=== PATIENT | female | born 1995 | race Caucasian/White ===

== ENCOUNTER 2020-06-30 20:55 | Emergency (ER) | payer OTHER ==
[~2020-06-30] VITALS: Ht 157.5 cm; Wt 68.0 kg
[2020-06-30] MEDS ORDERED: BIRTH CONTROL PATCH (21:18)
[2020-06-30 21:55] LABS: URINE BILIRUBIN NEGATIVE (Negative); URINE BLOOD TRACE (Negative); URINE CLARITY CLEAR; URINE COLOR YELLOW; URINE GLUCOSE-RANDOM 1+ (Negative); URINE KETONES NEGATIVE (Negative); URINE LEUKOCYTES-REFLEX NEGATIVE (Negative); URINE NITRITE-REFLEX NEGATIVE (Negative); URINE PROTEIN TRACE (Negative); URINE SPECIFIC GRAVITY >= 1.030 (1.005-1.030); URINE UROBILINOGEN 0.2 E.U./dl (0.2-1.0)
[2020-06-30 21:59] LABS: ABSOLUTE LYMPHOCYTES 2.2 thou/uL (0.8-5.3); ABSOLUTE MONOCYTES 0.8 thou/uL (0.0-1.2); ABSOLUTE NEUTROPHILS 8.8 thou/uL (1.6-8.1); BASOPHILS 0.4 %; EOSINOPHILS 0.2 %; HEMOGLOBIN 12.6 gm/dL (12.0-15.0); LYMPHOCYTES 18.8 %; MCH 26.8 pg (26.0-34.0); MCHC 33.3 g/dL (28.0-37.0); MCV 80.5 fL (80.0-100.0); MONOCYTES 6.7 %; MPV 7.6 fl. (7.2-11.1); NUCLEATED RBCS 0 /100WBC; PLATELET COUNT* 329 thou/uL (150-400); POLYS 73.9 %; RBC 4.72 mil/uL (4.20-5.00)
[2020-06-30 22:09] LABS: AMP/METHAMP Negative (Negative); BARBITURATES Negative (Negative); BENZODIAZEPINES Negative (Negative); COCAINE Negative (Negative); METHADONE Negative (Negative); OPIATES Negative (Negative); PCP Negative (Negative); THC Negative (Negative)
[2020-06-30 22:28] LABS: CREATININE 0.8 mg/dL (0.6-1.3); POTASSIUM 3.3 mmol/L (3.5-5.1)
[2020-06-30 22:33] LABS: ALBUMIN 3.2 g/dL (3.4-5.0); MAGNESIUM 1.8 mg/dL (1.8-2.4); TOTAL BILIRUBIN 0.2 mg/dL (<0.1-1.0); TOTAL PROTEIN 7.4 g/dL (6.4-8.2)
[2020-07-01 01:17] VITALS: BP 105/65
--- NOTE | 2020-07-01 10:51 | EKG ---
[place] [address] ELECTROCARDIOGRAM REPORT Name: SANGEETHA POST Room: [facility]#: [id number] Admission: 06/30/20 Attend Phys: Discharge: 07/01/20 Date of : [birth year] Date of Service: 06/30/202154 Report #: [id number] THIS REPORT FOR: //name// [facility] ED Test Date: 2020-06-30 Test Time: 21:55:53 Pat Name: SANGEETHA POST Department: Room: Gender: F Bundle Breaker: : 1995 Requested By: Lisette Cardozo Order Number: [id number] MD: Simon Urbina Measurements Intervals Victor Rate: 91 P: 59 MN: 141 QRS: 25 QRSD: 104 T: 9 QT: 380 QTc: 468 Interpretive Statements Sinus rhythm RSR' in V1 or V2, minor right ventricular Conduction delay No previous ECG available for comparison Electronically Signed On 07-01-2020 10:51:21 [employer] by Simon Urbina [email or web address] <ELECTRONICALLY SIGNED> By: Simon Urbina MD, [facility] 07/01/20 1051 54 54 Simon Urbina MD, FACC /EPI
== END 2020-07-01 01:19 | disposition home or self-care (01) ==
LOC: M.ERS 20:55
PROVIDERS: Nurse Practitioner Family
DX: R56.9 Unspecified convulsions (principal)